=== PATIENT | female | born 1980 | race Hispanic/Latino ===

== ENCOUNTER 2017-06-16 01:03 | Inpatient (IN) | payer BC, SELFPAY ==
[2017-06-16] MEDS ORDERED: Lidocaine 1% (PF) 30 ML VIAL SC PRN ×2 (02:32→06:23)
[2017-06-16] MEDS ORDERED: Methylergonovine 0.2 MG/ML VIAL IM PRN ×2 (02:32→14:35)
[2017-06-16] MEDS ORDERED: HYDROcodone/Acetaminophen 5/325 mg Tablet PO PRN ×4 (02:32→14:35)
[2017-06-16] MEDS ORDERED: LR / Pitocin 40 units/1000 ml 1,000 ML IV PRN ×2 (02:32→06:23)
[2017-06-16] MEDS ORDERED: Promethazine HCl 25 MG/ML VIAL IM PRN (02:32)
[2017-06-16] MEDS ORDERED: Lactated Ringer's 1,000 ML IV PRN (02:32)
[2017-06-16] MEDS ORDERED: Ondansetron HCl/PF 4 MG/2 ML Vial IVP PRN (02:32)
[2017-06-16] MEDS ORDERED: Ibuprofen 800 MG TAB PO PRN (02:32)
[2017-06-16] MEDS ORDERED: Acetaminophen 500 MG TAB PO PRN (02:32)
[2017-06-16 03:03] VITALS: BMI 24.0
[2017-06-16 04:34] LABS: Hemoglobin 10.8 g/dL (12.0-16.0); Mean Corpuscular HGB CONC 33.2 g/dL (32.0-36.0); Mean Corpuscular Hemoglobin 28.3 pg (27.0-31.0); Mean Corpuscular Volume 85.3 fl (81.0-99.0); Mean Platelet Volume 9.7 fL (7.4-10.4); Platelet Count 192 thou/uL (130-400); RBC Distribution Width 14.4 % (11.5-14.5); White Blood Cell (WBC) Count 12.8 thou/uL (4.8-10.8)
[2017-06-16 05:16] LABS: Syphilis Antibody Nonreactive (Nonreactive); Syphilis Antibody Index 0.05 S/CO (<1.00 Non-Reactive)
[2017-06-16 05:17] LABS: HBSAg Index 0.19 S/CO (0-0.99); Hep B Surf Ag Non-Reactive S/CO (NonReactive)
[2017-06-16] MEDS ORDERED: Penicillin G Potassium 5 MILL.UNITS in Sodium Chloride 0.9% 100 ML IVPB SCH (07:00)
--- NOTE | 2017-06-16 08:50 | PDOC.LDHP ---
Labor and Delivery H&P Chief complaint: contractions, loss of fluid HPI: Pt had been nikki all day yesterday. at 11pm after having sex, her water broke. It was clear, but she did have 2 spots of blood. Pt contacted her CNM and came to L&D Current gestational age (weeks): 39 Due date: 06/18/16 Dating criteria: last menstrual period (verified with first trimester US) Grav: 1 Para: 0 OB History Details: NO Hx. Current complications: IUGR (<1%. EFW 2378 at last US. Has seen MFM) Abnormal US findings: Yes (echogenic intracardiac foci (patient declined NIPT)) Past Medical History: Uterine fibroid 6cm Current medications: pre-jody vitamins Allergies/Adverse Reactions: Allergies Allergy/AdvReac Type Severity Reaction Status Date / Time No Known Allergies Allergy Verified 06/16/17 01:56 Social history: none - Physical Exam Vital signs reviewed and normal: yes General: NAD Heart: RRR Lungs: nonlabored breathing Abdomen: gravid FHT: category 2 (minimal variability on admission. Baseline change at 0800 from 135 to 160s. Recurrent late decelerations immediatley prior to delivery.) [place] contractions every: q5mins - Vaginal Exam cm dilated: 2 (on admission by RN) Effacement: 50% Station: -3 - OB Labs Blood type: O RH: positive Antibody Screen: negative HIV: negative RPR: negative HEPSAg: negative 1 hour GCT: negative GBS: unknown Urine drug screen: not done - Assessment L&D Assessment: term patient in labor - Plan Plan: admit to L&D
[2017-06-16] MEDS ORDERED: Ampicillin 2 GM in Sodium Chloride 0.9% 100 ML IVPB SCH (09:00)
[2017-06-16] MEDS ORDERED: Ampicillin 2 GM, Syringe 5.2 ML in Sterile Water 14.8 ML SLOW IVP SCH (09:00)
[2017-06-16] MEDS ORDERED: Penicillin G 2.5 MILL.units 2.5 MILL.UNITS in Premix Bag 1 BAG IVPB SCH (11:00)
--- NOTE | 2017-06-16 12:04 | PDOC.OPDEL ---
OB Operative/Delivery Note Delivery Dr/Surgeon: Gaetano Camilo CNM Pre-Delivery Diagnosis: active labor Procedure/Post Delivery Dx: spontaneous vaginal delivery Weeks gestation: 39 Anesthesia: none - Findings A Sex: female Weight: 5 lb 5 oz (2409g) - 1 min: 8 - 5 min: 9 - Additional Findings/Plan Placenta delivered: spontaneous Repaired Obstetrical Laceration: 1st degree (not repaired.) findings: other Estimated blood loss: 200mL Compilations/Other Findings: distended bladder FHTs baseline change from 130s on admission to 160s at 0800. Recurrent late decelerations and minimal variability immediately prior to delivery. Stu team was present at delivery. Post delivery plan: routine recovery
[2017-06-16] MEDS ORDERED: Measles/Mumps/Rubella 10 MCG/0.5 ML VIAL SC ONE (14:35)
[2017-06-16] MEDS ORDERED: Ibuprofen 800 MG TAB PO SCH (14:35)
[2017-06-16] MEDS ORDERED: Milk Of Magnesia 30 ML UDCUP PO PRN (14:35)
[2017-06-16] MEDS ORDERED: Benzocaine/Menthol 20-0.5% 60 ML CAN TOP PRN (14:35)
[2017-06-16] MEDS ORDERED: Lanolin Ointment 7 GM TUBE TOP PRN (14:35)
[2017-06-16] MEDS ORDERED: Adacel (T-DAP) 0.5 ML VIAL IM ONE (14:35)
[2017-06-16] MEDS ORDERED: Bisacodyl 10 MG SUPP PR PRN (14:35)
[2017-06-16] MEDS ORDERED: Misoprostol 200 MCG TAB VAG PRN (14:35)
[2017-06-16] MEDS ORDERED: LR / Pitocin 40 units/1000 ml 1,000 ML IV SCH (14:35)
[2017-06-16] MEDS ORDERED: Ampicillin 1 GM in Sodium Chloride 0.9% 100 ML IVPB SCH (14:50)
[2017-06-16] MEDS ORDERED: Ampicillin 1 GM, Syringe 2.6 ML in Sterile Water 7.4 ML SLOW IVP SCH (15:00)
[2017-06-16] MEDS: Ferrous Sulfate 325 MG TAB PO SCH (17:46)
[2017-06-16] MEDS: Ibuprofen 800 MG TAB PO SCH (22:16)
[2017-06-16] MEDS: Docusate Calcium (SURFAK) 240 MG CAP PO SCH (23:55)
[2017-06-17 06:13] LABS: Hemoglobin 8.8 g/dL (12.0-16.0); Mean Corpuscular HGB CONC 32.4 g/dL (32.0-36.0); Mean Corpuscular Hemoglobin 28.1 pg (27.0-31.0); Mean Corpuscular Volume 86.7 fl (81.0-99.0); Mean Platelet Volume 8.7 fL (7.4-10.4); Platelet Count 160 thou/uL (130-400); RBC Distribution Width 14.6 % (11.5-14.5); Red Blood Cell (RBC) Count 3.14 mill/uL (4.20-5.40); White Blood Cell (WBC) Count 14.2 thou/uL (4.8-10.8)
[2017-06-17] MEDS: Ibuprofen 800 MG TAB PO SCH ×3 (06:21→22:59)
[2017-06-17] MEDS: Ferrous Sulfate 325 MG TAB PO SCH ×2 (10:16→18:46)
[2017-06-17] MEDS: Prenatal Vitamin 1 TAB PO SCH (10:17)
[2017-06-17] MEDS: Docusate Calcium (SURFAK) 240 MG CAP PO SCH ×3 (10:17→23:03)
--- NOTE | 2017-06-17 20:44 | PDOC.PP ---
Post Progress Note Post Day #: 1 Subjective: pt is doing well. having some pain on the left hand side of her abd. PO intake tolerated: yes Flatus: yes Ambulation: yes Vital Signs (12 hours) Temp Pulse Resp 06/17/17 16:00 98.7 F 84 20 06/17/17 12:00 98.7 F 84 20 Weight Weight 123 lb - Physical Examination General: NAD Cardiovascular: no m/r/g Respiratory: clear to auscultation bilaterally Abdominal: + bowel sounds Fundus firm & at: Umbilicus Extremities: negative homans (B) Psychiatric: A&Ox3, normal affect Result Diagrams: 06/17/17 05:34 Additional Labs: Post Labs Blood Type O POSITIVE 06/16/17 03:50 Hep Bs Antigen Non-Reactive S/CO (NonReactive) 06/16/17 03:50 (1) (spontaneous vaginal delivery) Code(s): O80 - ENCOUNTER FOR FULL-TERM UNCOMPLICATED DELIVERY Status: Acute (2) IUGR (intrauterine growth restriction) Status: Acute (3) Advanced maternal age (AMA) in Code(s): CYN2139 - Status: Acute (4) Advanced maternal age, primigravida Code(s): O09.519 - SUPERVISION OF ELDERLY PRIMIGRAVIDA, UNSPECIFIED TRIMESTER Status: Acute - Assessment/Plan a: nml exam s/o at term following complicated by IUGR and AMA P: discharge home tomorrow.
[2017-06-17 22:53] VITALS: BP 119/70
[2017-06-18 00:37] VITALS: TEMP 99.1
[2017-06-18] MEDS: Ibuprofen 800 MG TAB PO SCH (06:40)
[2017-06-18] MEDS: Ferrous Sulfate 325 MG TAB PO SCH (09:16)
[2017-06-18] MEDS: Prenatal Vitamin 1 TAB PO SCH (09:16)
[2017-06-18] MEDS: Docusate Calcium (SURFAK) 240 MG CAP PO SCH (09:18)
== END 2017-06-18 14:10 | disposition home or self-care (01) | DRG 775 ==
LOC: L&D/OP 01:03 → L&D 03:10 → 3SE 15:32 → 3SW 21:43
PROVIDERS: ADMIT Student in an Organized Health Care Education/Training Program; ATTEND Student in an Organized Health Care Education/Training Program
PROC: 10E0XZZ Delivery of Products of Conception, External Approach (ICD-10-PCS; principal; 2017-06-16)
DX: O36.5930 Maternal care for other known or suspected poor fetal growth, third trimester, not applicable or unspecified (principal); N32.89 Other specified disorders of bladder; O28.3 Abnormal ultrasonic finding on antenatal screening of mother; Z37.0 Single live birth; Z3A.39 39 weeks gestation of pregnancy; O70.0 First degree perineal laceration during delivery
CPT/HCPCS: 36415; 85027; 86780; 86850; 86900; 86901; 87340; 99285; A4216; J0290; J2001; J2540; J7050

== ENCOUNTER 2020-09-05 08:01 | Outpatient (CLI) | payer BC | END 2020-09-05 08:02 | disposition home or self-care (01) | LOC: BICMAMMO 08:01 | PROVIDERS: ATTEND Family Medicine | DX: Z12.31 Encounter for screening mammogram for malignant neoplasm of breast (principal) | CPT/HCPCS: 77063; 77067 ==

== ENCOUNTER 2021-10-24 14:08 | Outpatient (CLI) | payer BC | END 2021-10-24 14:09 | disposition home or self-care (01) | LOC: BICMAMMO 14:08 | PROVIDERS: ATTEND Family Medicine | DX: Z12.31 Encounter for screening mammogram for malignant neoplasm of breast (principal); M41.25 Other idiopathic scoliosis, thoracolumbar region | CPT/HCPCS: 72081; 77063; 77067 ==